=== PATIENT | male | born 1950 | race Caucasian/White ===

== ENCOUNTER 2020-10-05 06:07 | Day surgery (SDC) | payer MEDICARE, MEDICAID, SELFPAY ==
[2020-10-05] VITALS (12 sets, daily range): BP systolic 122–165; BP diastolic 80–97; PULSE 66–120; RESP 12–24; TEMP 36.6–36.9; O2SAT 91–96; BMI 28.0
--- NOTE | 2020-10-05 | PATH_ITS ---
[facility] Accession Number: [id number] . 01 Material submitted: . PART A: bladder - LEFT LATERAL BLADDER WALL CANCER PART B: bladder - RIGHT POSTERIOR LATERAL BLADDER WALL TUMOR PART C: bladder - BASE OF BLADDER TUMOR . 02 Diagnosis: A. Bladder, Left Lateral Wall, TURBT: Papillary urothelial carcinoma, noninvasive, low grade. No muscularis propria identified. . B. Bladder, Right Posterior Lateral Wall, TURBT: Papillary urothelial carcinoma, noninvasive, low grade. No muscularis propria identified. . C. Bladder, Base, TURBT: Papillary urothelial carcinoma, noninvasive, low grade. Muscularis propria present and uninvolved. V 10/07/2020 1300 Local . 02 Electronically signed: . Bro Abbott MD, PhD, Pathologist NPI- [id number] . 01 Gross description: . A. Received in formalin, labeled left lateral bladder wall and consists of multiple mejia-pink fragments of soft tissue measuring 0.6 x 0.5 x 0.3 cm in aggregate. The specimen is entirely submitted in cassette A1. B. Received in formalin, labeled right posterior lateral bladder wall tumor and consists of multiple mejia fragments of soft tissue measuring 2.5 x 1.0 x 0.5 cm in aggregate. The specimen is filtered and entirely submitted in cassette B1. C. Received in formalin, labeled base of bladder tumor and consists of multiple mejia-pink fragments of soft tissue measuring 1.0 x 0.8 x 0.2 cm in aggregate. The specimen is filtered and entirely submitted in cassette C1. ([id number]) /MRV 10/06/2020 1503 Local . 02 Pathologist provided ICD-10: C67.9 . 02 CPT . 893896, [id number], 339003 Performed at: 01 [facility] [address] [facility], [place], [place] [id number] MD Sebastián Kaplan MD Phone: [phone] [facility]formed at: [facility] [id number] [place], [place] [id number] MD Jenelle Lopze MD Phone: [phone]
[2020-10-05 07:23] LABS: COVID19 -Nasal RAPID Negative (Negative)
--- NOTE | 2020-10-05 07:38 | PM.PREOP ---
Pre-operative Note Interval Note History & Physical reviewed/Exam performed by Physician: Yes Changes to H&P: No
[2020-10-05] MEDS: LACTATED RINGERS 1,000 ML 42 ML IV (07:46)
[2020-10-05] MEDS: CEFAZOLIN VIAL 3 GM in SODIUM CHLORIDE 0.9% 100 ML 200 ML IV (07:50)
[2020-10-05] MEDS: BELLADONNA/OPIUM SUPPOSITORIES 1 EACH PR (08:19)
--- NOTE | 2020-10-05 08:22 | SUR.OPER ---
Lithotomy on padded OR bed, head on pillow, arms secured on padded arm boards at <90 degrees abduction. Legs secured in padded yellow fins stirrups.
--- NOTE | 2020-10-05 08:52 | PM.OP.1 ---
Operative Date/Time/Diagnoses Date of procedure: 10/05/20 Time of procedure: 08:52 Pre-op diagnosis: Multifocal papillary neoplasm, bladder (2-5 cm). Post-op diagnosis: same Procedure & Clinicians Procedure: 1. Transurethral resection of bladder tumors (2-5 cm). 2. Instillation mitomycin-C (20 mg). Same procedure as scheduled: Yes Indications: Multifocal papillary bladder neoplasm. Intermittent gross hematuria. Surgeon: Sukumar Marx Click Yes if Unassisted: Yes Anesthesia Type: General Operative Notes Findings: 1. Urethra-normal caliber absent of annular stricture or lesion. 2. External sphincter-coapted with normal appearing urothelium. 3. Prostate-status post TUR with partially obstructing regrowth. 4. Bladder-1+ trabeculation. Normal ureteral orifices bilaterally. There is a solitary, 1 cm papillary tumor of the left superior lateral wall. There were multiple papillary and confluent neoplasm of the right posterior superior wall/dome. Closure Type: not applicable Specimen(s): other (1. Left superior lateral bladder wall 2. Right posterior superior bladder wall-tumor 3. Tumor base-right ) Applied: catheter ([address]uria catheter) Estimated Blood Loss (mL): 3 Blood products transfused: none Procedure in detail: Patient was positioned supine was administered general anesthetic. He was then repositioned semi lithotomy and the lower abdomen, genitalia, and groin were then prepped and draped in sterile fashion. Twenty-five Greenlandic resectoscope was then advanced lower urinary tract with the findings as described above. The resectoscope was then fitted with the working element and loop. The solitary left superior lateral wall tumor was then carefully excised in its entirety and submitted to pathology for routine gross and microscopic examination. The base was cauterized for hemostasis. Next, cold resection of the spreading and relatively large right superior and posterior bladder wall tumor was undertaken. This material was then gathered and submitted as right superior lateral wall tumor. The base was then carefully resected taking care to due to the relative thinness of the bladder wall. Some tissue was obtained and labeled as right superior lateral wall-base. Much of the base of the tumor however was simply cautery destroyed. The bladder was then left partially filled and the resectoscope was removed. A 22 Greenlandic hematuria catheter was then advanced, the balloon was then inflated 10 cc, and the bladder contents drained. A 20 cc solution containing 20 mg of mitomycin-C were then instilled in the bladder and a catheter plug was left in place for anticipated 2 hour postoperative retention. The patient was then repositioned in supine, was awakened, and was transferred to PACU in stable condition she Complications: none Post-operative Condition: stable Disposition: PACU Plan for aftercare: Discharge home.
[2020-10-05] MEDS: WATER FOR INJECTION,STERILE 20 ML, mitoMYcin 20 MG INTRAVESIC (08:56)
[2020-10-05] MEDS: ALBUTEROL 2.5 MG/3 ML NEB (ADULT) INH (09:19)
[2020-10-05] MEDS: fentaNYL 100 MCG/2 ML INJ IV ×4 (09:30→09:57)
[2020-10-05] MEDS: ACETAMINOPHEN 325 MG TABLET 650 MG PO (09:46)
[2020-10-05] MEDS: OXYCODONE IR 5 MG TABLET PO ×2 (09:52→10:22)
[2020-10-05] MEDS: ACETAMINOPHEN IV 1,000 MG/100 ML VIAL 400 MG IV (11:15)
[2020-10-05] MEDS: HYDROMORPHONE 1 MG INJ IV (11:32)
--- NOTE | 2020-10-05 13:31 | SUR.PHASEII ---
Pt arrived from Phase I. Stated felt like his bladder was extremely full and painful. At 1100, following chemo precautions, catheter was drained into a new fontenot bag, about 300 ml out. Pt states he felt no relief and still felt like he had a full bladder. Spoke with Dr Pierre and gave pt 1g IV tylenol, pt states this did not help his pain at all. Spoke to OR again and per Dr Worthy, gave pt 1mg IV dilaudid. Pt stated pain felt drastically improved and was able to sleep. Pt placed on 2L O2 via NC (same as his home dose). Once awake, sats were 88-92% on RA. Pt received education regarding emptying his catheter and provided written instructions on changing bag to leg bag as pt declined to have instructions here. leg bag sent home with pt. PIV removed without issue. Pt took all belongings home with him. Pt taken to pharmacy where he picked up his Rx. Pt then brought to car with his friend.
== END 2020-10-05 12:35 | disposition home or self-care (01) ==
PROVIDERS: PCP Student in an Organized Health Care Education/Training Program; Referring Provider Student in an Organized Health Care Education/Training Program; Visit Provider Specialist
PROC: 0TBB8ZZ Excision of Bladder, Via Natural or Artificial Opening Endoscopic (ICD-10-PCS; CPT 52235; principal; 2020-10-05 07:45)
DX: C67.9 Malignant neoplasm of bladder, unspecified (principal); Z20.822 Contact with and (suspected) exposure to COVID-19; J44.9 Chronic obstructive pulmonary disease, unspecified; Z86.711 Personal history of pulmonary embolism; Z86.718 Personal history of other venous thrombosis and embolism
CPT/HCPCS: 52235; 87635; J0131; J0690; J1100; J1170; J2250; J2405; J3010; J7613; J9280